=== PATIENT | male | born 1995 | race Caucasian/White ===

== ENCOUNTER 2024-11-22 16:40 | Emergency (ER) | payer SELFPAY ==
[2024-11-22] MEDS: Lidocaine/Epineph/Tetracaine 3 ML Syringe TOP STA (18:21)
[2024-11-22] MEDS: Tetracaine HCl/PF 0.5% 4 ML Bottle EYELF STA (19:27)
[2024-11-22] MEDS: Erythromycin Base 0.5% Ophth Oint 1 GM Tube EYEBOTH STA (20:04)
== END 2024-11-22 20:09 | disposition home or self-care (01) ==
LOC: MW.ED 16:40
DX: S00.212A Abrasion of left eyelid and periocular area, initial encounter (principal); H01.9 Unspecified inflammation of eyelid; Z75.8 Other problems related to medical facilities and other health care; W22.8XXA Striking against or struck by other objects, initial encounter; Y99.0 Civilian activity done for income or pay
CPT/HCPCS: 99283; A9270; J3490